=== PATIENT | male | born 1950 | race Hispanic/Latino ===

== ENCOUNTER 2022-04-01 13:37 | Emergency (ER) | payer MEDICARE ==
[~2022-04-01] VITALS: Ht 172.7 cm; Wt 74.8 kg
[2022-04-01] MEDS ORDERED: HYDROCODONE/APAP 5MG-325MG TAB PO ONE (14:00)
[2022-04-01] MEDS ORDERED: ULTRAM 50MG50 MG PO (18:17)
[2022-04-01] MEDS ORDERED: NAPROSYN500 MG PO (18:19)
[2022-04-01] MEDS ORDERED: KETOROLAC TROMETHAMINE 30 MG/ML VIAL IM STA (19:03)
[2022-04-01 19:22] VITALS: BP 147/104
[2022-04-02] MEDS ORDERED: ULTRAM50 MG PO (18:19)
== END 2022-04-01 19:23 | disposition home or self-care (01) ==
LOC: ER 13:41
DX: S32.011A Stable burst fracture of first lumbar vertebra, initial encounter for closed fracture (principal); W18.2XXA Fall in (into) shower or empty bathtub, initial encounter; Y93.E1 Activity, personal bathing and showering; Y92.091 Bathroom in other non-institutional residence as the place of occurrence of the external cause
CPT/HCPCS: 72131; 74176; 99283; J1885